=== PATIENT | female | born 1960 | race African-American/Black ===

== ENCOUNTER 2016-08-14 11:33 | Emergency (ER) | payer OTHER, MEDICAID ==
[~2016-08-14] VITALS: Ht 152.4 cm; Wt 79.4 kg
[~2016-08-14 11:33] MED LIST: AMLO5TAB2 PO; ARIP1TAB11; ASPI81CH43 PO; ATOR20TA50 PO; CETI10TA93; ESCI10TA53 PO; LOR05T; LOS25T; METF-312
[2016-08-14 12:04] VITALS: BP 118/71
[2016-08-14 12:27] LABS: Basophils # (auto) 0.1 uL; Basophils % (auto) 0.7 % (0.0-2.0); Eosinophils # (auto) 0.3 uL; Eosinophils % (auto) 2.3 % (0.0-7.0); Hematocrit 42.6 % (36.0-46.0); Hemoglobin 13.5 g/dL (12.2-16.2); Lymphocytes # (auto) 4.3 uL; Lymphocytes % (auto) 38.9 % (10.0-50.0); Mean Corpuscular Hemoglobin 28.2 pg (28.0-32.0); Mean Corpuscular Hgb Conc. 31.7 g/dL (32.0-36.0); Mean Corpuscular Volume 89.1 fL (80.0-100.0); Mean Platelet Volume 8.1 fL (7.4-10.4); Monocytes % (auto) 8.9 % (0.0-12.0); Neutrophils # (auto) 5.5 uL; Neutrophils % (auto) 49.2 % (37.0-80.0); Platelet Count (auto) 371 10^3/uL (140-450); Red Cell Distribution Width 13.9 % (11.6-16.0); White Blood Cell 11.1 10^3/uL (4.4-10.8)
[2016-08-14 12:47] LABS: BUN/Creatinine Ratio 15.3; Bilirubin, Total 0.4 mg/dL (0.2-1.0); Calcium 10.2 mg/dL (8.5-10.1); Total Protein 7.7 g/dL (6.4-8.2)
== END 2016-08-14 23:00 | disposition left against medical advice (07) ==
LOC: ER 11:42
DX: R07.9 Chest pain, unspecified (principal); R11.0 Nausea; R12 Heartburn; Z53.21 Procedure and treatment not carried out due to patient leaving prior to being seen by health care provider
CPT/HCPCS: 36415; 80053; 84484; 85025; 93005

== ENCOUNTER 2017-12-23 10:37 | Emergency (ER) | payer OTHER, MEDICAID ==
[~2017-12-23] VITALS: Ht 154.9 cm; Wt 79.4 kg
[~2017-12-23 10:37] MED LIST changes: -LOR05T; +LORA-654; -METF-312; +METF-370
[2017-12-23] MEDS ORDERED: MORPHINE SULFATE 4 MG/ML SYR/VIAL IV ONE (11:00)
[2017-12-23 11:11] LABS: Basophils # (auto) 0.1 uL; Basophils % (auto) 0.9 % (0.0-2.0); Eosinophils # (auto) 0.2 uL; Eosinophils % (auto) 2.3 % (0.0-7.0); Hematocrit 34.3 % (36.0-46.0); Hemoglobin 11.2 g/dL (12.2-16.2); Lymphocytes # (auto) 2.7 uL; Lymphocytes % (auto) 28.2 % (10.0-50.0); Mean Corpuscular Hemoglobin 28.9 pg (28.0-32.0); Mean Corpuscular Hgb Conc. 32.6 g/dL (32.0-36.0); Mean Corpuscular Volume 88.5 fL (80.0-100.0); Monocytes # (auto) 1.1 uL; Monocytes % (auto) 11.2 % (0.0-12.0); Neutrophils # (auto) 5.5 uL; Neutrophils % (auto) 57.4 % (37.0-80.0); Nucleated Red Blood Cells % 0.1 %; Platelet Count (auto) 506 10^3/uL (140-450); Red Blood Cells 3.88 10^6/uL (4.0-5.20); Red Cell Distribution Width 13.8 % (11.8-14.3); White Blood Cell 9.7 10^3/uL (4.4-10.8)
[2017-12-23 11:28] LABS: BUN/Creatinine Ratio 10.5; Bilirubin, Total 0.3 mg/dL (0.2-1.0); Calcium 9.2 mg/dL (8.5-10.1); Potassium 4.1 mmol/L (3.5-5.1); Total Protein 8.2 g/dL (6.4-8.2)
[2017-12-23 12:07] LABS: Urine Bacteria NONE SEEN /hpf (None Seen); Urine Blood Negative /uL (Negative); Urine Mucus FEW (None Seen); Urine Specific Gravity 1.022 (1.001-1.035); Urine WBC 1 /hpf (0 - 5)
[2017-12-23] MEDS: SODIUM CHLORIDE 0.9% 1,000 ML IVB ONE (13:34)
[2017-12-23] MEDS: PANTOPRAZOLE 40 MG/10 ML VIAL IV STA (13:35)
[2017-12-23 13:48] VITALS: BP 146/68
[2017-12-23] MEDS: METOCLOPRAMIDE HCL 5MG/ml INJ 2ml VIAL IV ONE (14:15)
[2017-12-23] MEDS: KETOROLAC TROMETH 30 MG/ML 1ML VIAL IV ONE (14:15)
== END 2017-12-23 14:56 | disposition home or self-care (01) ==
LOC: ER 10:41
DX: K29.70 Gastritis, unspecified, without bleeding (principal); I10 Essential (primary) hypertension; E78.5 Hyperlipidemia, unspecified; F17.210 Nicotine dependence, cigarettes, uncomplicated; F12.10 Cannabis abuse, uncomplicated; R53.1 Weakness
CPT/HCPCS: 36415; 76705; 80053; 81001; 82150; 83690; 85025; 94761; 96374; 96375; 99285; C9113; J1885; J2765; 93005

== ENCOUNTER 2019-01-23 00:27 | Emergency (ER) | payer OTHER, MEDICAID ==
[~2019-01-23] VITALS: Ht 154.9 cm; Wt 77.1 kg
[~2019-01-23 00:27] MED LIST changes: +AMLO5TAB13 PO; -AMLO5TAB2 PO
[2019-01-23 00:45] VITALS: BP 148/52
== END 2019-01-23 05:39 | disposition left against medical advice (07) ==
LOC: ER 00:28
DX: N93.9 Abnormal uterine and vaginal bleeding, unspecified (principal); Z53.21 Procedure and treatment not carried out due to patient leaving prior to being seen by health care provider

== ENCOUNTER 2024-03-10 09:07 | Inpatient (IN) | payer OTHER, MEDICAID ==
[~2024-03-10] VITALS: Ht 152.4 cm; Wt 73.0 kg
[~2024-03-10 09:07] MED LIST changes: +AMLO1TAB22 PO; -AMLO5TAB13 PO; -ARIP1TAB11; +ARIP1TAB59; -ESCI10TA53 PO; +ESCI1TAB36 PO; +LORA-1121; -LORA-654; -LOS25T; +LOS25T PO
[2024-03-10 09:30] VITALS: PULSE 67; RESP 18; O2SAT 98
[2024-03-10 09:32] LABS: Urine Bacteria FEW /hpf (None Seen); Urine Blood 1+ /uL (Negative); Urine Clarity Turbid (Clear); Urine Color Light-Yellow (Yellow); Urine Mucus FEW (None Seen); Urine Protein, UAD Negative (Negative); Urine Specific Gravity 1.008 (1.001-1.035); Urine Urobilinogen Normal (Negative); Urine WBC 1 /hpf (0 - 5); Urine pH 5.5 (5.0-9.0)
[2024-03-10] MEDS: ONDANSETRON HCL 4 MG/2 ML VIAL IV ONE (10:15)
[2024-03-10] MEDS: MORPHINE SULFATE 4 MG/ML SYR/VIAL IV ONE (10:39)
[2024-03-10] MEDS: SODIUM CHLORIDE 0.9% 1,000 ML IVB ONE (10:39)
[2024-03-10 11:03] LABS: Chloride 108 mmol/L (98-107); Potassium 4.3 mmol/L (3.5-5.1); Sodium 141 mmol/L (136-145)
[2024-03-10 11:04] LABS: Anion Gap 6 (5-15); Carbon Dioxide 27 mmol/L (20-30)
[2024-03-10 11:05] LABS: Calcium 9.8 mg/dL (8.7-10.4)
[2024-03-10 11:10] LABS: BUN/Creatinine Ratio 13.7 (10.0-20.0); Blood Urea Nitrogen 14 mg/dL (9-23); Glucose 87 mg/dL (74-106)
[2024-03-10 11:41] LABS: Basophils # (auto) 0.1 10 ^3/uL (0-0.2); Basophils % (auto) 1.2 % (0.0-2.0); Eosinophils # (auto) 0.1 10 ^3/uL (0-0.8); Eosinophils % (auto) 1.1 % (0.0-7.0); Hematocrit 41.2 % (36.0-46.0); Hemoglobin 13.5 g/dL (12.2-16.2); Lymphocytes # (auto) 3.5 10 ^3/uL (0.4-5.4); Lymphocytes % (auto) 36.2 % (10.0-50.0); Mean Corpuscular Hemoglobin 29.1 pg (28.0-32.0); Mean Corpuscular Hgb Conc. 32.8 g/dL (32.0-36.0); Mean Corpuscular Volume 88.8 fL (80.0-100.0); Monocytes # (auto) 0.8 10 ^3/uL (0-1.3); Monocytes % (auto) 8.5 % (0.0-12.0); Neutrophils # (auto) 5.2 10 ^3/uL (1.6-8.6); Red Blood Cells 4.64 10^6/uL (4.0-5.20); Red Cell Distribution Width 14.8 % (11.8-14.3); White Blood Cell 9.7 10^3/uL (4.4-10.8)
[2024-03-10] MEDS ORDERED: DOCUSATE SOD 100 MG CAP PO PRN (11:45)
[2024-03-10] MEDS ORDERED: ONDANSETRON HCL 4 MG/2 ML VIAL IV PRN (11:45)
[2024-03-10] MEDS ORDERED: MORPHINE SULFATE INJ 2 MG/ml SYRG IV PRN (11:45)
[2024-03-10] MEDS ORDERED: NITROGLYCERIN 0.4 MG SL TAB SL PRN (11:45)
[2024-03-10] MEDS: SODIUM CHLORIDE 0.9% 1,000 ML IV SCH (12:03)
[2024-03-10] MEDS: PANTOPRAZOLE 40 MG/10 ML VIAL INJ IV ONE (12:04)
[2024-03-10 15:30] VITALS: RESP 18
[2024-03-10 16:54] VITALS: BP 140/40; PULSE 51; RESP 16; TEMP 98; O2SAT 98
[2024-03-10] MEDS ORDERED: BUSP5TAB51 PO (19:30)
[2024-03-10] MEDS ORDERED: HYDR-4798 PO (19:30)
[2024-03-10] MEDS ORDERED: ALBUAER3 IN (19:30)
[2024-03-10] MEDS ORDERED: ASPI1TAB20 PO (19:30)
[2024-03-10] MEDS ORDERED: ATOR40TA52 PO (19:30)
[2024-03-10] MEDS ORDERED: FAMO20TA10 PO (19:30)
[2024-03-10] MEDS ORDERED: TRAZ-228 PO (19:30)
[2024-03-10 20:00] VITALS: PULSE 56; RESP 16; O2SAT 93
[2024-03-10 20:57] VITALS: BP 128/52; PULSE 56; RESP 15; TEMP 98.4; O2SAT 93
[2024-03-10] MEDS: LOSARTAN POTASSIUM 50 MG TAB PO ONE (21:42)
[2024-03-10] MEDS: ATORVASTATIN 20 MG TAB PO SCH (21:43)
[2024-03-10] MEDS: traZODone HCL 50 MG TAB PO SCH (21:44)
[2024-03-10] MEDS: busPIRone HCL 10 MG TAB PO SCH (21:44)
[2024-03-11 04:56] VITALS: BP 157/52; PULSE 67; RESP 16; TEMP 98.4; O2SAT 92
[2024-03-11] MEDS ORDERED: hydrALAZINE HCL 10 MG TAB PO PRN (07:30)
[2024-03-11 08:28] LABS: Chloride 113 mmol/L (98-107); Potassium 4.1 mmol/L (3.5-5.1); Sodium 143 mmol/L (136-145)
[2024-03-11 08:29] LABS: Anion Gap 7 (5-15); Calcium 9.4 mg/dL (8.7-10.4); Carbon Dioxide 23 mmol/L (20-30)
[2024-03-11 08:34] LABS: BUN/Creatinine Ratio 10.3 (10.0-20.0); Blood Urea Nitrogen 9 mg/dL (9-23); Glucose 95 mg/dL (74-106)
[2024-03-11 08:38] LABS: Basophils # (auto) 0.1 10 ^3/uL (0-0.2); Basophils % (auto) 1.2 % (0.0-2.0); Eosinophils # (auto) 0.1 10 ^3/uL (0-0.8); Eosinophils % (auto) 1.8 % (0.0-7.0); Hematocrit 37.1 % (36.0-46.0); Hemoglobin 11.9 g/dL (12.2-16.2); Lymphocytes # (auto) 2.5 10 ^3/uL (0.4-5.4); Lymphocytes % (auto) 34.9 % (10.0-50.0); Mean Corpuscular Hemoglobin 29.2 pg (28.0-32.0); Mean Corpuscular Hgb Conc. 32.2 g/dL (32.0-36.0); Mean Corpuscular Volume 90.6 fL (80.0-100.0); Monocytes # (auto) 0.6 10 ^3/uL (0-1.3); Neutrophils # (auto) 3.8 10 ^3/uL (1.6-8.6); Neutrophils % (auto) 54.1 % (37.0-80.0); Nucleated Red Blood Cells % 0.2 %; Red Blood Cells 4.09 10^6/uL (4.0-5.20); Red Cell Distribution Width 14.9 % (11.8-14.3); White Blood Cell 7.1 10^3/uL (4.4-10.8)
[2024-03-11 09:00] VITALS: BP 146/84; PULSE 63; RESP 18; TEMP 98.3; O2SAT 95
[2024-03-11] MEDS: LOSARTAN POTASSIUM 50 MG TAB PO SCH (10:02)
[2024-03-11] MEDS: PANTOPRAZOLE 40 MG/10 ML VIAL INJ IV SCH (10:03)
[2024-03-11] MEDS: cefTRIAXone 1GM/50ML D5W 50 ML IV ONE (11:55)
[2024-03-11 13:00] VITALS: BP 152/59; PULSE 68; RESP 18; TEMP 98.5; O2SAT 95
[2024-03-11] MEDS: ERGOCALCIFEROL 50,000 UNIT(1.25MG) CAP PO SCH (15:17)
[2024-03-11 17:00] VITALS: BP 146/56; PULSE 61; RESP 18; TEMP 98.6; O2SAT 95
[2024-03-11 20:00] VITALS: PULSE 64; RESP 18; O2SAT 93
[2024-03-11 21:00] VITALS: BP 140/67; PULSE 64; RESP 18; TEMP 97.9; O2SAT 93
[2024-03-12 01:00] VITALS: BP 138/62; PULSE 62; RESP 18; TEMP 97.9; O2SAT 92
[2024-03-12 05:00] VITALS: BP 141/64; PULSE 58; RESP 18; TEMP 98.1; O2SAT 94
[2024-03-12 07:51] LABS: Alanine Aminotransferase 11 U/L (7-40); Albumin 4.2 g/dL (3.2-4.8); Alkaline Phosphatase 68 U/L (46-116); Anion Gap 7 (5-15); Aspartate Aminotransferase 9 U/L (13-40); Bilirubin, Total 0.9 mg/dL (0.2-1.0); Blood Urea Nitrogen 9 mg/dL (9-23); Carbon Dioxide 25 mmol/L (20-30); Chloride 111 mmol/L (98-107); Glucose 96 mg/dL (74-106); Sodium 143 mmol/L (136-145); Total Protein 6.5 g/dL (5.7-8.2)
[2024-03-12 07:55] LABS: BUN/Creatinine Ratio 9.9 (10.0-20.0)
[2024-03-12 09:00] VITALS: BP 156/69; PULSE 80; RESP 20; TEMP 98.8; O2SAT 97
[2024-03-12] MEDS ORDERED: LEVO500T91 PO (12:04)
[2024-03-12 13:00] VITALS: BP 165/78; RESP 20; TEMP 98.8; O2SAT 95
[2024-03-12 14:03] VITALS: BP 156/69; TEMP 37.1
== END 2024-03-12 15:00 | disposition home or self-care (01) | DRG 690 ==
LOC: ER 09:07 → OVERFLOW 11:40 → EAST 15:05
PROVIDERS: ADMIT Nurse Practitioner Family; ATTEND Nurse Practitioner Family
DX: N10 Acute pyelonephritis (principal); E78.5 Hyperlipidemia, unspecified; F32.A Depression, unspecified; I10 Essential (primary) hypertension; F17.210 Nicotine dependence, cigarettes, uncomplicated; K21.9 Gastro-esophageal reflux disease without esophagitis; E55.9 Vitamin D deficiency, unspecified; F12.10 Cannabis abuse, uncomplicated; Z79.82 Long term (current) use of aspirin; Z79.899 Other long term (current) drug therapy; Z90.5 Acquired absence of kidney; Z87.442 Personal history of urinary calculi; Z98.891 History of uterine scar from previous surgery; R31.9 Hematuria, unspecified
CPT/HCPCS: 36415; 74176; 76775; 80048; 80053; 81001; 82306; 82607; 83036; 84443; 85025; 87086; G0378; J2405; J2470